=== PATIENT | female | born 2000 | race Caucasian/White ===

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

== ENCOUNTER 2019-01-11 18:05 | Emergency (ER) | payer OTHER ==
--- OUTSIDE RECORDS SUMMARY | 2019-01-11 18:10 | XMS REPORT | Continuity of Care Document ---
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 Problems Description No Information Available Social History Type Date Description Comments Sex Unknown Tobacco Use Start: Unknown Nonsmoker Smoking Status Reviewed: 10/21/17 Nonsmoker Allergies, Adverse Reactions, Alerts Description No Known Drug Allergies Medications Active Medications SIG Qnty Indications Ordering Provider Date Symbicort 2 puff twice a sample Marilyn Leal [facility] 12/09/2018 80-4.5mcg/Act day Aerosol Buspirone HCL take 1 tablet by 60tabs Nuris Mac, 11/18/2018 7.5mg mouth two times [employer] Tablets daily Escitalopram Oxalate Take 1 Tablet By 30tabs F43.22 Nuris Mac, Mouth Every Day [employer] 5mg Tablets [place] 1 by mouth every 28tabs Nuris Mac, 06/03/2018 0.35mg Tablets day [employer] Lorazepam 0.5 or 1 tablet 60tabs F41.9 Nuris Mac, 01/21/2018 0.5mg Tablets by mouth twice a [employer] day as needed anxiety History Medications Cheratussin ac 5-10ml every 4 236ml Marilyn Leal [employer] 12/09/2018 - hours as needed 12/31/2018 100-10mg/5ML Syrup Immunizations CPT Code Status Date Vaccine Reaction Lot # [id number] Given 04/22/2018 Meningococcal Recombinant Lipoprotein [id number] Vaccine Serogroup B 35065 Given 10/21/2017 Meningococcal Recombinant Lipoprotein [id number] Vaccine Serogroup B 95270 Given 12/31/2016 Meningococcal Conjugate [id number] Vaccine,Serogroups For Intramuscular Use 54666 Given 11/27/2016 Hep A Ped 2-Dose Immunization [id number] 71602 Given 05/30/2016 Influenza Vac, Quadrivalent, Slit Virus, [id number] [place] [address] Given 05/30/2016 Hep A Ped 2-Dose Immunization [id number] 48409 Given 06/01/2015 Meningococcal Conjugate [id number] Vaccine,Serogroups For Intramuscular Use 84287 Given 04/05/2014 Influenza Vac, Quadrivalent, Slit Virus, [id number] [place] [address] Given 06/25/2011 Gardasil vacine typs 6,11,16,18 3 dose [id number] schedule 55280 Given 03/04/2011 Gardasil vacine typs 6,11,16,18 3 dose [id number] schedule 79421 Given 12/25/2010 Tdap Tetanus, W Pertussis [id number] 27797 Given 12/25/2010 Gardasil vacine typs 6,11,16,18 3 dose schedule 77623 Given 12/25/2010 Gardasil vacine typs 6,11,16,18 3 dose #1 schedule 91419 Given 11/13/2004 (IPV) Inactive Poliovirus Vaccine 97799 Given 11/13/2004 Varicella (Chicken Pox) Immunization 36158 Given 11/13/2004 DTaP & Hib Immunization 64737 Given 12/18/2000 MMR Virus Immunization 62122 Given 11/11/2000 MMR Virus Immunization 92652 Given 01/29/2000 Hepatitis B Immunization, [place]-19 Years 82[address] Given 1999 DTaP Immunization 12647 Given 1999 (Hib) Hemoplilus Influenza B 65075 Given 1999 Inactive Polio Immunization 92542 Given 1999 Comvax Hep B & Hib Immunization 20457 Given 1999 (IPV) Inactive Poliovirus Vaccine 69780 Given 1999 DTaP Immunization 55267 Given 1999 Inactive Polio Immunization 77265 Given 1999 Comvax Hep B & Hib Immunization 84915 Given 1999 DTaP Immunization Vital Signs Date Vital Result Comment 12/31/2018 8:12am BP Systolic 96 mmHg BP Diastolic 62 mmHg Heart Rate 92 /min Body Temperature 98.4 F Respiratory Rate 17 /min Height 63 inches 5'3" Weight 154.00 lb BMI (Body Mass Index) 27.3 kg/m2 Body Mass Index Percentile 88 % Weight Percentile 84th Height Percentile 31 % 12/09/2018 3:47pm BP Systolic 96 mmHg BP Diastolic 64 mmHg Heart Rate 72 /min Body Temperature 98.8 F Respiratory Rate 16 /min Height 63 inches 5'3" Weight 152.00 lb BMI (Body Mass Index) 26.9 kg/m2 Body Mass Index Percentile 87 % Weight Percentile 82nd Height Percentile 31 % Results Description No Information Available Procedures Date Code Description Status 09/17/2018 18089 Brief Emotional/Behav Assessment W/ Scoring Doc Per Completed Standard [facility] Medical Devices Description No Information Available Encounters Type Date Location Provider Dx Diagnosis Office Visit 12/09/2018 [facility] Office Hilary Leal, [facility] R05 Cough 3:45p Office Visit 11/18/2018 [facility] Office Nuris F41.9 Anxiety disorder, 11:00a Estefania, [employer] unspecified G47.00 Insomnia, unspecified F43.22 Adjustment disorder with anxiety R05 Cough R06.2 Wheezing Office Visit 09/17/2018 9:30a Main Office Nuris F43.22 Adjustment Estefania, [facility] disorder with anxiety F41.9 Anxiety disorder, unspecified G47.00 Insomnia, unspecified R63.5 Abnormal weight gain N94.6 Dysmenorrhea, unspecified N92.6 Irregular menstruation, unspecified Assessments Date Code Description Provider 12/31/2018 F41.9 Anxiety disorder, unspecified Nuris Estefania, [facility] 12/31/2018 G47.00 Insomnia, unspecified Nuris Estefania, [facility] 12/09/2018 R05 Cough Hilary Leal, [facility] 11/18/2018 F41.9 Anxiety disorder, unspecified Nuris Estefania, [facility] 11/18/2018 G47.00 Insomnia, unspecified Nuris Estefania, [facility] 11/18/2018 F43.22 Adjustment disorder with anxiety Nuris Estefania, [facility] 11/18/2018 R05 Cough Nuris Estefania, [facility] 11/18/2018 R06.2 Wheezing Nuris Estefania, [facility] 09/17/2018 F43.22 Adjustment disorder with anxiety Nuris Mac, [facility] 09/17/2018 F41.9 Anxiety disorder, unspecified Nuris Mac, [facility] 09/17/2018 G47.00 Insomnia, unspecified Nuris Mac, [facility] 09/17/2018 R63.5 Abnormal weight gain Nuris Mac, [facility] 09/17/2018 N94.6 Dysmenorrhea, unspecified Nuris Mac, [facility] 09/17/2018 N92.6 Irregular menstruation, unspecified Nuris Mac, [facility] Plan of Treatment 12/31/2018 - Nuris Mac[facility] Anxiety disorder, unspecifiedComments: Reduce the lexapro to 1/2 tab even days, 1 full tab odd. days (you'll need a pill cutter)I expect itto take at least 4 weeks to come off lexapro, it might take 10-- go super duper slow, and only proceed to next reduction if you're feeling great1/2 tab even day, 1 tab odd. days--2-3 weeksthen 1/2 tab every day 2-3 weeks, then 1/2 tab every other then stopCall LINDSAY if condition changes/ worsens in any wayFollow up:6 months call LINDSAY if condition changes/worsens in any wayG47.00 Insomnia, unspecifiedAllComments:Medication Management Patient Understands medications he 's taking? Yes No Are there Barriers to Adherence? Yes No Has the patient been asked about herbal supplements and therapies, [facility]? Yes No As always, we strongly encourage a healthy diet and making physical activity a part of your every day life. If you have questions about how or where to start, please contact the office. Functional Status Description No Information Available Mental Status Description No Information Available Referrals Description No Information Available
--- NOTE | 2019-01-11 18:13 | UC ---
Throat Pain/Nasal Jalen HPI - HPI Summary HPI Summary: 18 yo female presents with sore throat since yesterday. 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 Yesterday her throat began to hurt and the right side was worse than the left. Today pain has continued and she has increased pain with swallowing. She took ibuprofen this morning and her pain was improved. She is eating, drinking, and tolerating po well. Denies fever, chills, sinus symptoms, cough, rash, n/v - History of Current Complaint Chief Complaint: UCRespiratory Stated Complaint: THROAT PAIN Time Seen by Provider: 01/11/19 18:13 Hx Obtained From: Patient Hx Last Menstrual Period: 07/26/18 Onset/Duration: Sudden Onset Severity: Moderate Pain Intensity: 5 Pain Scale Used: 0-10 Numeric - Allergies/Home Medications Allergies/Adverse Reactions: Allergies Allergy/AdvReac Type Severity Reaction Status Date / Time No Known Allergies Allergy Verified 01/11/19 18:15 Home Medications: Home Medications Norethindrone [[place]] 0.35 mg PO DAILY 01/11/19 [History Confirmed 01/11/19] PMH/Surg Hx/FS Hx/Imm Hx GI/ History: Gastroesophageal Reflux Psychological History: Anxiety, Depression - Surgical History Surgical History: None - Family History Known Family History: Positive: Diabetes, Other - CA, Non-Contributory - Social History Lives: With Family Alcohol Use: None Substance Use Type: None Smoking Status (MU): Never Smoked Tobacco Have You Smoked in the Last Year: No - Immunization History Vaccination Up to Date: Yes Review of Systems All Other Systems Reviewed And Are Negative: No Constitutional: Positive: Negative Skin: Positive: Negative Eyes: Positive: Negative ENT: Positive: Sore Throat Respiratory: Positive: Negative Cardiovascular: Positive: Negative Neurological: Positive: Negative Psychological: Positive: Negative Physical Exam - Summary Physical Exam Summary: GENERAL: NAD. WDWN. No pain distress. SKIN: No rashes, sores, lesions, or open wounds. HEENT: Head: AT/NC Eyes: EOM intact. Conjunctiva clear without inflammation or discharge. Ears: Hearing grossly normal. TMs intact, no bulging, erythema, or edema. Nose: Nasal mucosa pink and moist. NTTP maxillary and frontal sinus. Throat: Posterior oropharynx without exudates, erythema, or tonsillar enlargement. Uvula midline. NECK: Supple. Nontender. No lymphadenopathy. CHEST: CTAB. No r/r/w. No accessory muscle use. Breathing comfortably and in no distress. CV: RRR. Without m/r/g. Pulses intact. Cap refill <2seconds NEURO: Alert. PSYCH: Age appropriate behavior. Triage Information Reviewed: Yes Vital Signs: Vital Signs: Temp Pulse Resp BP Pulse Ox 99.3 F 85 18 99/65 100 01/11/19 18:11 01/11/19 18:11 01/11/19 18:11 01/11/19 18:11 01/11/19 18:11 Laboratory Tests 01/11/19 18:27 Group A Strep Rapid Negative Vital Signs Reviewed: Yes Throat Pain/Nasal Course/Dx - Course Course Of Treatment: POC strep negative. Discussed with pt. Suspect viral sore throat. Advised to continue OTC medications and try warm salt water gargles and/or tea with honey - Differential Dx/Diagnosis Provider Diagnosis: Sore throat Discharge ED - Sign-Out/Discharge Documenting (check all that apply): Patient Departure All imaging exams completed and their final reports reviewed: No Studies - Discharge Plan Condition: Stable Disposition: HOME Patient Education Materials: Pharyngitis (ED) Referrals: Nuris Mac NP [Primary Care Provider] - Additional Instructions: If you develop a fever, shortness of breath, chest pain, new or worsening symptoms - please call your PCP or go to the ED immediately. Your strep test was negative today Please continue taking over the counter tylenol/ibuprofen as directed for discomfort and be rechecked if symptoms do not improve - Billing Disposition and Condition Condition: STABLE Disposition: Home
[2019-01-11 18:15] VITALS: BP 99/65
== END 2019-01-11 18:49 | disposition home or self-care (01) ==
LOC: UCEAST 18:05
DX: J02.9 Acute pharyngitis, unspecified (principal); F41.9 Anxiety disorder, unspecified; F32.9 Major depressive disorder, single episode, unspecified; K21.9 Gastro-esophageal reflux disease without esophagitis
CPT/HCPCS: 87651; 99211; G0463